=== PATIENT | female | born 1960 | race Caucasian/White ===

== ENCOUNTER 2017-08-07 21:14 | Emergency (ER) | payer MEDICARE ==
[~2017-08-07] VITALS: Ht 165.1 cm; Wt 113.4 kg
[~2017-08-07 21:14] MED LIST: ACET500 PO; AMIT25 PO; ASPI81EC PO; ATEN50 PO; EPIN.3I IM; FLUO20 PO; GABA300 PO; HYDPAM50 PO; IBUP600 PO; LORA10ER PO; OXYC15ER PO; PRED10 PO; RANI150 PO; TRAM50 PO
[2017-08-07] MEDS ORDERED: METH5 PO (21:36)
[2017-08-07] MEDS ORDERED: MORP15ER PO (21:37)
[2017-08-07] MEDS ORDERED: MORP10S PO (21:37)
== END 2017-08-07 22:05 | disposition home or self-care (01) ==
LOC: ER 21:14
DX: M79.89 Other specified soft tissue disorders (principal); Z88.0 Allergy status to penicillin; Z88.8 Allergy status to other drugs, medicaments and biological substances; Z88.1 Allergy status to other antibiotic agents; Z79.899 Other long term (current) drug therapy; Z79.891 Long term (current) use of opiate analgesic; I10 Essential (primary) hypertension
CPT/HCPCS: 99282

== ENCOUNTER 2018-07-22 14:00 | Emergency (ER) | payer MEDICARE ==
[~2018-07-22] VITALS: Ht 165.1 cm; Wt 113.4 kg
[~2018-07-22 14:00] MED LIST changes: +METH5 PO; +MORP10S PO; +MORP15ER PO
[2018-07-22] MEDS ORDERED: PRED20 PO (15:11)
== END 2018-07-22 15:24 | disposition home or self-care (01) ==
LOC: ER 14:00
DX: L23.9 Allergic contact dermatitis, unspecified cause (principal); Z88.0 Allergy status to penicillin; Z88.8 Allergy status to other drugs, medicaments and biological substances; Z88.1 Allergy status to other antibiotic agents; Z79.899 Other long term (current) drug therapy; Z79.891 Long term (current) use of opiate analgesic; I10 Essential (primary) hypertension
CPT/HCPCS: 36415; 96374; 99283-25; J1200; J7512

== ENCOUNTER → 2020-11-14 | Outpatient (CLI) | payer MEDICARE ==
[~2020-11-14] MED LIST changes: +PRED20 PO
[2020-11-14 16:22] LABS: BASOPHILS ABSOLUTE AUTO 0.04 K/mm3 (0.00-0.23); BASOPHILS PERCENT AUTO 1 % (0-2); EOSINOPHILS PERCENT AUTO 5 % (0-6); Hematocrit 43.4 % (33.0-51.0); Hemoglobin 13.1 g/dL (11.5-16.0); IMMATURE GRAN ABSOLUTE AUTO 0.04 K/mm3 (0.00-0.10); IMMATURE GRAN PERCENT AUTO 1 % (0-1); LYMPHOCYTES ABSOLUTE AUTO 1.71 K/mm3 (0.84-5.20); LYMPHOCYTES PERCENT AUTO 20 % (21-46); MONOCYTES ABSOLUTE AUTO 0.44 K/mm3 (0.16-1.47); MONOCYTES PERCENT AUTO 5 % (4-13); Mean Corpuscular HGB Conc 30.2 g/dL (31.5-36.5); Mean Corpuscular Volume 90 fL (80-100); Mean Platelet Volume 9.8 fL (9.1-12.4); NEUTROPHILS ABSOLUTE AUTO 5.99 K/mm3 (1.96-9.15); NEUTROPHILS PERCENT AUTO 70 % (41-73); Platelet Count 305 K/mm3 (150-400); RDW Coefficient Variation 14.9 % (11.7-14.2); RDW Standard Deviation 48.5 fL (35.1-46.3); Red Blood Cell Count 4.85 M/mm3 (3.80-5.20); White Blood Cell Count 8.62 K/mm3 (4.00-11.30)
[2020-11-14 16:31] LABS: Alanine Aminotransfer (ALT/SGP 23 U/L (12-78); Albumin, Blood 3.4 g/dL (3.4-5.0); Albumin/Globulin Ratio 0.9 (0.8-1.8); Alk Phos 123 U/L (40-126); Anion Gap 7 mmol/L (6-16); Aspartate Aminotrans (AST/SGOT 12 U/L (12-37); Bilirubin, Total 0.4 mg/dL (0.1-1.0); Blood Urea Nitrogen 17 mg/dL (8-24); Bun/Creatinine Ratio 19.5 (12.0-20.0); CO2, Blood 31 mmol/L (21-32); Calcium, Blood 8.7 mg/dL (8.5-10.1); Chloride, Blood 105 mmol/L (98-108); Creatinine, Blood 0.87 mg/dL (0.40-1.00); Glomerular Filtration Rate >60 (60-); Glucose, Blood 115 mg/dL (70-99); Potassium, Blood 4.3 mmol/L (3.5-5.5); Sodium, Blood 143 mmol/L (136-145); Total Protein, Blood 7.4 g/dL (6.4-8.2)
== END | disposition home or self-care (01) ==
LOC: LAB 16:17 → LAB SHORT 16:17
PROVIDERS: Internal Medicine
DX: G83.10 Monoplegia of lower limb affecting unspecified side (principal)
CPT/HCPCS: 80053; 85025